=== PATIENT | female | born 1960 | race Caucasian/White ===

== ENCOUNTER 2020-09-16 07:57 | Emergency (ER) | payer BC, OTHER ==
[2020-09-16] MEDS ORDERED: MORPHINE SULFATE INJ 10 MG/ML VIAL IM ONE (08:16)
--- NOTE | 2020-09-16 08:19 | ED.PDOC ---
History of Present Illness - General Chief Complaint: General Time Seen by Provider: 09/16/20 07:58 Source: patient, RN notes reviewed, Vital Signs reviewed, family - History of Present Illness Initial Comments: 59 yo otherwise healthy female comes in with one week of left flank pain. She went to urgent care was dx with UTI. Then went to ER in [facility] ago had CT scan which was negative, dx with uti (given different antibiotics) and Tylenol #3. Pain continues so comes in. no prior abdominal surgery. no cp, sob, n/v/d. no constipation. no change in bowels. Allergies/Adverse Reactions: Allergies NO KNOWN ALLERGY Allergy (Verified 09/16/20 08:08) Home Medications: Ambulatory Orders Acetamin W/Cod #3 Tab [Tylenol w/CODEINE #3] tablet PO PRN 09/16/20 Cefuroxime Axetil [Ceftin] 500 mg PO DAILY 09/16/20 Ciprofloxacin HCl [Cipro] 500 mg PO DAILY 09/16/20 Gabapentin 100 mg PO QID PRN #40 cap 09/16/20 Lidocaine (Anorectal) [Lidocaine 5%] 5 % EX BID PRN #1 bottle 09/16/20 Valacyclovir HCl 1 gm PO Q8H #21 tab 09/16/20 Review of Systems - Review of Systems Constitutional: States: fever - tmax 99. Denies: chills EENTM: Denies: eye pain, throat pain, mouth pain Respiratory: Denies: cough, short of breath Cardiology: Denies: chest pain, palpitations Gastrointestinal/Abdominal: States: abdominal pain. Denies: diarrhea, nausea, vomiting Genitourinary: Denies: dysuria, frequency, hematuria Musculoskeletal: States: back pain. Denies: muscle pain Skin: Denies: rash Neurological: Denies: headache, numbness, paresthesia Endocrine: Denies: unexplained weight gain, unexplained weight loss Hematologic/Lymphatic: Denies: easy bleeding, easy bruising Past Medical History (General) - Patient Medical History Hx Seizures: No Hx Stroke: No Hx Dementia: No Hx Asthma: No Hx of COPD: No Hx Cardiac Disorders: No Hx Congestive Heart Failure: No Hx Pacemaker: No Hx Hypertension: No Hx Thyroid Disease: No Hx Diabetes: No Hx Gastroesophageal Reflux: No Hx Renal Disease: No Hx Cancer: No Hx of HIV: No Hx Hepatitis B: No Hx Hepatitis C: No Hx MRSA: No Hx Other PMH: No Family Medical History - Family History Paternal Family History: No Known Physical Exam - Physical Exam General Appearance: Alert, Comfortable, No apparent distress, Well Developed, Well Groomed, Well Hydrated, Well Nourished Eye Exam: bilateral normal Ears, Nose, Throat: hearing grossly normal, normal ENT inspection, normal pharynx Neck: non-tender, full range of motion, supple, normal inspection Respiratory: chest non-tender, lungs clear, normal breath sounds, no respiratory distress, no accessory muscle use Cardiovascular/Chest: normal peripheral pulses, regular rate, rhythm, no edema, no gallop, no JVD, no murmur Peripheral Pulses: radial,right: 2+, radial,left: 2+ Gastrointestinal/Abdominal: normal bowel sounds, non tender, soft, no organomegaly, no pulsatile mass Rectal Exam: deferred Back Exam: normal inspection, no vertebral tenderness, CVA tenderness (L) Extremity: normal range of motion, non-tender, normal inspection, no pedal edema, no calf tenderness, normal capillary refill Neurologic: no motor/sensory deficits, alert, normal mood/affect, oriented x 3 Skin Exam: warm/dry, rash - vesicular like rash along left flank dermatome, does not cross midline Progress - Progress Progress: 09/16/20 08:34 The data reviewed when caring for this patient included: nurse notes, prior records, etc. The history and assessments from nurses notes were reviewed and considered, and the patient's home medication list was also reviewed and considered. My assessment and the results of testing completed here in the ED were discussed with the patient/family. All questions were answered, and they express understanding of my assessment and the plan. They have been instructed to return if their symptoms worsen, and have been asked to follow up with their primary care physician to recheck today's presenting complaint. Strict return precautions given. I have reviewed medication, benefits, alternatives and side effects. Patient decided to proceed with medication. Anneliese Deleon DO #[id number] - Results/Orders Results/Orders: 09/16/20 08:14 URINE CULTURE W/COLONY COUNT Stat Laboratory Results Urine Color Yellow (Yellow) 09/16/20 08:14 Urine Appearance Clear (Clear) 09/16/20 08:14 Urine pH 6.0 (4.5-7.8) 09/16/20 08:14 Ur Specific [place] 1.010 (1.005-1.030) 09/16/20 08:14 Urine Protein Negative mg/dL 09/16/20 08:14 Urine Glucose (UA) Negative mg/dL (Negative) 09/16/20 08:14 Urine Ketones 80 mg/dL (NEGATIVE) H 09/16/20 08:14 Urine Blood Small (Negative) H 09/16/20 08:14 Urine Nitrite Negative 09/16/20 08:14 Urine Bilirubin Negative (NEGATIVE) 09/16/20 08:14 Urine Urobilinogen 0.2 mg/dL (0.2-1.0) 09/16/20 08:14 Ur Leukocyte Esterase Large (Negative) H 09/16/20 08:14 Urine RBC 5-10 /hpf H 09/16/20 08:14 Urine WBC 20-30 /hpf H 09/16/20 08:14 Ur Epithelial Cells 3-5 /hpf 09/16/20 08:14 Urine Bacteria 2+ H 09/16/20 08:14 recommend patient continues with antibiotics for urine. Departure - Departure Clinical Impression: Shingles Qualifiers: Herpes zoster complications: without complications Qualified Code(s): B02.9 - Zoster without complications UTI (urinary tract infection) Qualifiers: Urinary tract infection type: acute cystitis Hematuria presence: with hematuria Qualified Code(s): N30.01 - Acute cystitis with hematuria Time of Disposition: 08:16 Disposition: Discharge to Home or Self Care Departure Forms: ED Discharge - Pt. Copy, Patient Portal Self Enrollment Instructions: Shingles, Shingles (DC) Diet: resume usual diet Activity: increase activity as tolerated Referrals: Neha Finch MD [Primary Care Provider] - 1-5 Days Prescriptions: Gabapentin 100 mg PO QID PRN #40 cap PRN Reason: Pain Lidocaine (Anorectal) [Lidocaine 5%] 5 % EX BID PRN #1 bottle PRN Reason: Pain Valacyclovir HCl 1 gm PO Q8H #21 tab Home Medications: Ambulatory Orders Acetamin W/Cod #3 Tab [Tylenol w/CODEINE #3] tablet PO PRN 09/16/20 Cefuroxime Axetil [Ceftin] 500 mg PO DAILY 09/16/20 Ciprofloxacin HCl [Cipro] 500 mg PO DAILY 09/16/20 Gabapentin 100 mg PO QID PRN #40 cap 09/16/20 Lidocaine (Anorectal) [Lidocaine 5%] 5 % EX BID PRN #1 bottle 09/16/20 Valacyclovir HCl 1 gm PO Q8H #21 tab 09/16/20
[2020-09-16] MEDS ORDERED: LIDOCAINE 4% TOPICAL 40 MG/ML SYG TOP ONE (08:21)
[2020-09-16 08:27] VITALS: BP 117/93; TEMP 99.2
[2020-09-16 08:44] VITALS: O2SAT 95
== END 2020-09-16 08:35 | disposition home or self-care (01) ==
LOC: ER 07:57
DX: B02.9 Zoster without complications (principal); N30.01 Acute cystitis with hematuria
CPT/HCPCS: 81001; 87086; J2270